=== PATIENT | male | born 1980 | race Caucasian/White ===

== ENCOUNTER 2018-08-25 00:23 | Emergency (ER) | payer SELFPAY, OTHER ==
[2018-08-25] MEDS: IBUPROFEN 600 MG TAB PO (03:59)
[2018-08-25] MEDS: hydrOXYzine HCL 25 MG TAB PO (03:59)
== END 2018-08-25 04:46 | disposition home or self-care (01) ==
LOC: E/R 00:23
DX: L29.9 Pruritus, unspecified (principal); R59.0 Localized enlarged lymph nodes; K12.1 Other forms of stomatitis; Z87.891 Personal history of nicotine dependence
CPT/HCPCS: 86765; 99283